=== PATIENT | female | born 1990 | race Caucasian/White ===

== ENCOUNTER → 2021-11-25 | Outpatient (CLI) | payer MEDICAID, SELFPAY ==
[2021-11-25 16:41] LABS: Absolute Lymphocyte Count 1.74 X10^3/uL (0.83-4.51); Absolute Neutrophil Count 6.8 X10^3/uL (2.0-7.7); Basophil# 0.04 X10^3/uL; Basophil% 0.4 % (0-1); Eosinophil# 0.61 X10^3/uL; Eosinophils% 6.1 % (0-5); Hematocrit 34.9 % (37-47); Hemoglobin 12.3 g/dL (12.0-15.0); Lymphocyte # 1.74 X10^3/ul (0.83-4.51); Lymphocyte % 17.3 % (19-41); Mean Corp Hgb Conc 35.2 g/dL (32-36); Mean Corpuscular Hgb 30.3 pg (27.0-32.0); Mean Platelet Vol. 9.8 fl (6.2-12.0); Monocyte# 0.82 X10^3/uL; Monocyte% 8.2 % (0-10); NRBC Flagged by Analyzer 0 % (0-5); Neutrophil # 6.78 X10^3/uL (2.7-7.7); Neutrophil % 67.5 % (47-70); Platelet Count 257 K/mm3 (150-450); RBC Distribution Width SD 43.5 fl (35.1-43.9); Red Blood Count 4.06 M/mm3 (4.2-5.4)
[2021-11-25 17:01] LABS: Thyroid Stim Hormone (TSH) 1.46 uIU/mL (0.358-3.74)
[2021-11-26 10:23] LABS: HIV - WCH Non-Reactive (Nonreactive); Hepatitis B Surface Antigen Non-Reactive (Nonreactive); Hepatitis C Antibody Non-Reactive (Nonreactive); Rubella IgG Reactive (Nonreactive); Syphilis Antibodies Non-reactive
[2021-11-27 14:34] LABS: V-Zoster IgG (Immunity) 937 index (Immune >165)
== END | disposition home or self-care (01) ==
PROVIDERS: Visit Provider Student in an Organized Health Care Education/Training Program
DX: Z34.81 Encounter for supervision of other normal pregnancy, first trimester (principal); E03.9 Hypothyroidism, unspecified
CPT/HCPCS: G0145; 36415; 84443; 85025; 86703; 86762; 86780; 86787; 86803; 87077; 87086; 87088; 87340; 88175

== ENCOUNTER 2021-12-08 09:30 | Emergency (ER) | payer MEDICAID, SELFPAY ==
[2021-12-08 09:32] VITALS: BP 128/84; PULSE 64; RESP 18; TEMP 35.6; O2SAT 100; BMI 41.4
--- NOTE | 2021-12-08 10:07 | EDS_ITS ---
HPI History of Present Illness Chief Complaint: Lower Extremity Injury Informant: patient Onset/Context/Timing Onset: Weeks (2) Context: Gradual Onset Timing: Continuous Quality of Pain: - (sore) Location: LLE Current Severity: Moderate Maximum Severity: Moderate Worsened by: palpation Relieved by: leaving alone Associated Symptoms Associated Symptoms: Negative for Parasthesia, Weakness or Loss of Funtion Narrative Narrative: Patient is , for the past 2 weeks she has gradually developed painful redness in her left medial knee and proximal calf as well as dependent edema in her ankle on the left. No chest pain or shortness of breath. She discussed with her OB and they sent her to the emergency department for evaluation. No history of DVT or PE. No recent long travel or immobilization/hospitalization or surgery. PFSH PFSH Medical History no medical history no medical history Allergy/AdvReac Type Severity Reaction Status Date / Time Penicillins AdvReac Hives Verified 12/08/21 09:35 Sulfa (Sulfonamide AdvReac Hives Verified 12/08/21 09:35 Antibiotics) Social History Smoking Status: Unknown if ever smoked ROS ROS ED Constitutional Constitutional ED: Denies chills or fever(s) Cardiovascular Cardiovascular: Reports leg edema; Denies chest pain, palpitations, racing heartbeat or syncope Respiratory/Chest Respiratory/Chest: Denies dyspnea or dyspnea on exertion Musculoskeletal Musculoskeletal: Reports extremity pain; Denies neck pain Integumentary Denies Abrasions, rash or wounds Neurologic Neurologic: Denies paresthesias or weakness EXAM Physical Exam Const Vital Signs: 12/08/21 09:32 Temperature 96.0 F L Temperature Source Temporal Pulse Rate 64 Respiratory Rate 18 Blood Pressure 128/84 H Blood Pressure Mean 98 Pulse Ox 100 Oxygen Delivery Method Room Air Positive well nourished, well developed and obese General Appearance ED: well developed and NAD Nutritional Appearance: obese Neck full ROM and supple Resp normal respiratory effort and no retractions Cardio regular rate and regular rhythm Rate: Negative for tachycardic Back/Spine normal ROM and normal to inspection Extremity full ROM Extremity Narrative: Mild erythema and tenderness at the medial aspect of the left knee and proximal calf. superficial palpable cords and several nearby veins. Mild distal edema in the left lower extremity asymmetric. Neuro oriented x3, no focal motor deficits, no sensory deficits noted and gait normal Sensorium / Orientation: alert Psych mental status grossly normal and thought process normal Skin no wounds Rashes: no rashes MDM MDM MDM Narrative Medical decision making narrative: Duplex venous ultrasound of the left lower extremity was obtained here in the em ergency department, preliminary evaluation from the copier field service technician is that there is superficial venous thrombosis without any DVT. Discussed with Dr. Swift, who is in agreement with aspirin 81 mg daily and warm compresses and close outpatient follow-up without the need for any anticoagulation. Discussed with the patient she was given aspirin here and discharged with appropriate discharge instructions. Discharge Plan Triage Chief Complaint: Lower Extremity Injury ED Provider: Tristen Urbina Dx/Rx/DC Orders Clinical Impression: Acute superficial venous thrombosis of left lower extremity, Instructions: Venous Thromboembolism Primary Care Provider: Care Physician,No Primary Referrals: Chichi Swift DO [Med Staff - Active Staff] - 1 Week Care Physician,No Primary [Primary Care Provider] - Activity Restrictions/Additional Instructions: Do warm compresses as advised in the instructions of follow, and take aspirin 81 mg (baby) once daily. Disposition Disposition: Home, Self Care
--- NOTE | 2021-12-08 10:07 | VDLE_ITS ---
Reason For Study: Swelling RIGHT LEFT CFV is compressible, spontaneous, phasic, GSV is normal. competent and demonstrates normal CFV is compressible, spontaneous, phasic, augmentation. competent, and demonstrates normal Procedure augmentation. This is a venous duplex using B-mode, color FV is compressible, spontaneous, phasic, flow and spectral Doppler. competent and demonstrates normal Exam performed in department. augmentation. A preliminary report was called and/or faxed POP V is compressible, spontaneous, phasic, to Dr. Urbina. competent and demonstrates normal augmentation. T/P Trunk is compressible. PTV is compressible. LT PerV is compressible. Thrombus filled varicose veins noted at the knee. VL/Venous Duplex US, Unilateral Interpretation Summary Deep veins of the left lower extremity are patent and compressible segmentally. There is no evidence of left lower extremity deep vein thrombosis. Acute superficial vein thrombus noted in varicosities adjacent to the left knee Ordering Physician: Tristen Urbina Performed By: Araceli Morgan RVT
[2021-12-08] MEDS: Aspirin 81 MG TAB.CHEW PO (11:18)
== END 2021-12-08 11:19 | disposition home or self-care (01) ==
PROVIDERS: Emergency Provider Emergency Medicine; Visit Provider Emergency Medicine
DX: O22.30 Deep phlebothrombosis in pregnancy, unspecified trimester (principal); O99.210 Obesity complicating pregnancy, unspecified trimester; I82.812 Embolism and thrombosis of superficial veins of left lower extremity; Z3A.00 Weeks of gestation of pregnancy not specified
CPT/HCPCS: 93971; 99283

== ENCOUNTER → 2021-12-23 | Outpatient (CLI) | payer MEDICAID, SELFPAY ==
[2021-12-23 12:18] LABS: Absolute Lymphocyte Count 1.64 X10^3/uL (0.83-4.51); Absolute Neutrophil Count 6.2 X10^3/uL (2.0-7.7); Basophil# 0.04 X10^3/uL; Basophil% 0.4 % (0-1); Eosinophil# 0.39 X10^3/uL; Eosinophils% 4.3 % (0-5); Hematocrit 34.1 % (37-47); Hemoglobin 11.2 g/dL (12.0-15.0); Lymphocyte # 1.64 X10^3/ul (0.83-4.51); Lymphocyte % 18.1 % (19-41); Mean Corp Hgb Conc 32.8 g/dL (32-36); Mean Corpuscular Hgb 29.8 pg (27.0-32.0); Mean Corpuscular Volume 90.7 fL (81-99); Mean Platelet Vol. 9.5 fl (6.2-12.0); Monocyte# 0.63 X10^3/uL; NRBC Flagged by Analyzer 0 % (0-5); Neutrophil # 6.21 X10^3/uL (2.7-7.7); Neutrophil % 68.8 % (47-70); Platelet Count 248 K/mm3 (150-450); RBC Distribution Width CV 13.7 % (11.6-14.6); Red Blood Count 3.76 M/mm3 (4.2-5.4)
[2021-12-23 12:21] LABS: Glucose Challenge Gest 1H 50g 155 mg/dL (70-140)
[2022-01-01 00:07] LABS: HPV Genotype 16, Aptima Negative (Negative)
[2022-01-01 09:01] LABS: HPV APTIMA, High Risk Positive (Negative); HPV Genotype 18,45 Aptima Negative (Negative)
== END | disposition home or self-care (01) ==
LOC: WOBLAB 11:03
PROVIDERS: Visit Provider Student in an Organized Health Care Education/Training Program
DX: Z34.82 Encounter for supervision of other normal pregnancy, second trimester (principal)
CPT/HCPCS: 36415; 82950; 85025; 87624; 88175; G0145

== ENCOUNTER → 2021-12-30 | Outpatient (CLI) | payer MEDICAID, SELFPAY ==
[2021-12-30 10:01] LABS: Glucose GTT-Gestation. Fasting 73 mg/dL (<105)
[2021-12-30 10:49] LABS: Glucose GTT-Gestational 1 Hr 140 mg/dL (<190)
[2021-12-30 12:26] LABS: Glucose GTT-Gestational 3 Hr 61 L (<145)
[2021-12-30 12:27] LABS: Glucose GTT-Gestational 2 Hr 87 mg/dL (<165)
== END | disposition home or self-care (01) ==
LOC: WOBLAB 08:40
PROVIDERS: Visit Provider Student in an Organized Health Care Education/Training Program
DX: O24.912 Unspecified diabetes mellitus in pregnancy, second trimester (principal); Z3A.00 Weeks of gestation of pregnancy not specified
CPT/HCPCS: 36415; 82951; 82952

== ENCOUNTER 2022-02-02 09:17 | Outpatient (CLI) | payer MEDICAID, SELFPAY ==
[2022-02-02 09:18] VITALS: BP 120/73; PULSE 108; RESP 14; TEMP 36.3; O2SAT 97; BMI 44.5
--- NOTE | 2022-02-02 09:32 | ED.RN ---
Pt taken down to OB per OB doctor request.
[2022-02-02 10:00] VITALS: O2SAT 80
[2022-02-02 10:01] VITALS: BP 128/56; PULSE 71
[2022-02-02 10:16] VITALS: BMI 43.6
[2022-02-02] MEDS: Acetaminophen 500 MG Tablet 1000 MG PO (10:55)
[2022-02-02 11:41] LABS: Mucous, Urine 0 SEEN /hpf (<or=2+); Red Blood Cells-Urine 0 SEEN /hpf (0-5); Squamous Epithelial Cells - UA 0 SEEN /hpf (5-10)
[2022-02-02 11:42] LABS: Color, Urine Yellow (Yellow); Glucose, Dipstick Normal (Normal); Ketone-Dipstick 5 mg/dl (Negative); Leukocyte Esterase-Dipstick 500 /ul (Negative); Nitrite-Dipstick Positive (Negative); Occult Blood-Urine 10 /ul (Negative); Protein-Dipstick 15 mg/dl (Negative); Specific Gravity, Urine 1.015 (1.002-1.030); Urine Bilirubin Dipstick Negative (Negative); Urine Clarity Clear (Clear); Urine Urobilinogen Normal (Normal)
[2022-02-02 11:53] LABS: White Blood Cells 25-50 SEEN /hpf (0-5)
[2022-02-02 11:54] LABS: Bacteria 3+ /hpf (None Seen)
--- NOTE | 2022-02-02 12:56 | PN.OBGYN_ITS ---
Subjective Subjective 31-year-old at 25 and 3 weeks presenting with back pain and lower pelvic discomfort. Denies dysuria, fevers or chills, nausea or vomiting, diarrhea or constipation. Reports movement. Denies cramping, leaking of fluid, vaginal bleeding. Objective Data Objective Data Vital Signs: Vital Signs Temp Pulse Resp BP Pulse Ox O2 Del Method 97.3 F L 71 14 128/56 H 80 Room Air 02/02/22 09:18 02/02/22 10:01 02/02/22 09:18 02/02/22 10:01 02/02/22 10:00 02/02/22 09:18 Oxygen Delivery Method Room Air Weight: 118.841 kg Body Mass Index (BMI) 43.6 Lab / Micro Data Attestation: I reviewed the patient's lab results. Labs: Laboratory Results - last 24 hr 02/02/22 11:30: Urine Color Yellow, Urine Clarity Clear, Urine pH 7.0, Ur Specific [place] 1.015, Urine Protein 15 H, Urine Glucose (UA) Normal, Urine Ketones 5 H, Urine Occult Blood 10 H, Urine Nitrite Positive H, Urine Bilirubin Negative, Urine Urobilinogen Normal, Ur Leukocyte Esterase 500 H, Urine RBC 0 SEEN, Urine WBC 25-50 SEEN, Ur Squamous Epith Cells 0 SEEN, Urine Bacteria 3+, Urine Mucus 0 SEEN Physical Exam Const alert, oriented x3 and no apparent distress General Appearance: cooperative and comfortable HEENT normocephalic Head and Scalp: atraumatic Eyes PERRL Resp normal respiratory effort GI soft to palpation, non-tender and non-distended Inspection: gravid Narrative: Cervix closed, thick and high Back/Spine no CVA tenderness Extremity normal to inspection and no pedal edema Neuro moves all extremities, no focal motor deficits and no sensory deficits noted NST FHR Rate Baby A Baseline: 145 Variability:: Moderate Accelerations:: 15 x 15 Decelerations:: None NST Reactive:: Yes Assessment & Plan (1) Urinary tract infection: PLAN: G2, P0 at 25/3 weeks presenting with urinary tract infection. No evidence of labor. No CVA tenderness, no evidence for pyelonephritis. Will treat with Macrobid. Urine culture is pending. Tylenol did improve pain as well. Prescription for Tylenol, Macrobid, Zofran sent to [facility] retail pharmacy. Patient is to see social work while she is here. She is currently living at [facility]. Patient has been walking to appointments. Will look into coverage of insurance for rides and also belly band. status reassuring. Discharge home with precautions. Patient call or return with fevers or chills. Follow-up as routine in office.
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
== END 2022-02-02 16:30 | disposition home or self-care (01) ==
LOC: ED 09:44 → WP 09:45
PROVIDERS: Visit Provider Student in an Organized Health Care Education/Training Program
DX: O23.42 Unspecified infection of urinary tract in pregnancy, second trimester (principal); Z3A.25 25 weeks gestation of pregnancy; Z79.82 Long term (current) use of aspirin; Z79.899 Other long term (current) drug therapy
CPT/HCPCS: 59025; 59050; 81001; 87077; 87086; 87088; 87186; 99218; G0378

== ENCOUNTER 2022-02-09 08:12 | Emergency (ER) | payer MEDICAID, SELFPAY ==
[2022-02-09 08:13] VITALS: BP 132/58; PULSE 70; RESP 14; TEMP 36.6; O2SAT 100; BMI 43.2
--- NOTE | 2022-02-09 08:26 | ED.VIS.FEGU ---
HPI HPI - Female History of Present Illness Chief Complaint: Complaint Narrative Narrative: Patient tells me she is about 26 weeks . She has 2 complaints she has right upper incisor tenderness and facial tenderness. She also has dysuria. She was recently treated for UTI but does not know if she was on the right antibiotic, apparently was not cultured. She has no fevers or chills she has no flank pain no hematuria. She has heart movement. PFSH PFSH Home Medications PNV 153-FA 400 mcg-om3 35 mg-dha 25 mg-epa 5 mg-fish oil chew tablet ( Gummies) tab PO 02/02/22 [History Last Taken 02/01/22 21:00] acetaminophen 325 mg tablet (Tylenol) 650 mg PO Q6H PRN fever or pain #60 tabs 02/02/22 [Rx Last Taken Unknown] aspirin 81 mg chewable tablet 81 mg PO DAILY blood clots 02/02/22 [History Last Taken 02/01/22 21:00] ferrous gluconate 325 mg (36 mg iron) tablet 325 mg PO DAILY anemia 02/02/22 [History Last Taken 02/01/22 21:00] nitrofurantoin monohydrate/macrocrystals 100 mg capsule (Macrobid) 100 mg PO BID 7 days #14 caps 02/02/22 [Rx Last Taken Unknown] omeprazole 20 mg capsule,delayed release 20 mg PO DAILY 02/02/22 [History Last Taken 02/01/22 21:00] ondansetron 4 mg disintegrating tablet 4 mg PO Q8H PRN nausea and vomiting 30 days #30 tabs 02/02/22 [Rx Last Taken Unknown] cephalexin 500 mg capsule 500 mg PO Q6 #40 caps 02/09/22 [Rx Last Taken Unknown] Allergy/AdvReac Type Severity Reaction Status Date / Time Penicillins AdvReac Hives Verified 02/09/22 08:13 Sulfa (Sulfonamide AdvReac Hives Verified 02/09/22 08:13 Antibiotics) Social History Smoking Status: Current every day smoker tobacco type: cigarettes ROS ROS ED ROS Narrative Past medical history: Prior superficial thrombophlebitis Medications: Reviewed Social history: Continues to smoke throughout her Review of systems: All systems negative except as indicated General: No fever Eyes: No visual changes ENT: No upper airway congestion, normal voice. Dental pain as in HPI Neck: No neck pain Cardiovascular: No chest pain Respiratory: No shortness of breath or cough Gastrointestinal: No abdominal pain, nausea vomiting or diarrhea. Has heart movement Genitourinary: As in HPI Musculoskeletal: Denies myalgias no difficulty with ambulation Skin: No rash Neurological: No memory loss, confusion or any focal weakness Psych: No recent behavioral changes Hematologic: No easy bleeding or easy bruising EXAM Physical Exam Narrative Exam Narrative: Physical exam General: She appears relatively comfortable in the bed. Her vitals are normal. Head: Normocephalic, Atraumatic Eyes: Conjunctiva not pale ENT: Moist mucous membranes. She has a missing right upper incisor, that is where her tenderness is, she has no edema swelling or erythema or any signs of infection. She has a normal voice and a normal soft palate. Neck: Supple, Nontender, No lymphadenopathy Cardiovascular: Regular rate, Regular rhythm Respiratory: No distress, CTA bilaterally Abdomen: Soft, gravid. No significant tenderness. : Deferred. Back: Nontender, Normal Inspection. Negative for: CVA tenderness Extremities: Nontender, No edema Skin: Normal color, No rash Neurological: Alert, Normal Strength, Normal Sensation Psychological: Normal affect Const Vital Signs: 02/09/22 08:13 Temperature 98 F Temperature Source Temporal Pulse Rate 70 Respiratory Rate 14 Blood Pressure 132/58 H Blood Pressure Mean 82 Pulse Ox 100 Oxygen Delivery Method Room Air MDM MDM MDM Narrative Medical decision making narrative: Patient still has a slight UTI, I will culture it. I will place the patient on Keflex, she was initially on nitrofurantoin. The Keflex should get any kind of infection in the dental region. She can follow-up with her OB Lab Data Labs: Laboratory Results - last 24 hr 02/09/22 08:43 Urine Color Yellow Urine Clarity Sl. Cloudy Urine pH 7.0 Ur Specific [place] 1.010 Urine Protein Negative Urine Glucose (UA) Normal Urine Ketones Negative Urine Occult Blood 10 H Urine Nitrite Positive H Urine Bilirubin Negative Urine Urobilinogen Normal Ur Leukocyte Esterase 25 H Urine RBC 0-5 SEEN Urine WBC 0-5 SEEN Ur Squamous Epith Cells 5-10 SEEN Urine Bacteria 3+ Urine Mucus 0 SEEN Discharge Plan Triage Chief Complaint: Complaint ED Provider: Parvez Busby Dx/Rx/DC Orders Clinical Impression: Urinary tract infection, Pain, dental Instructions: ED Dental Pain, ED Cystitis Female Adult Prescriptions: New cephalexin 500 mg capsule 500 mg PO Q6 Qty: 40 0RF No Action omeprazole 20 mg Capsule,Delayed Release(Dr/Ec) 20 mg PO DAILY aspirin 81 mg Tablet,Chewable 81 mg PO DAILY ferrous gluconate 325 mg (36 mg iron) Tablet 325 mg PO DAILY Gummies 400 mcg-35 mg- 25 mg-5 mg Tablet,Chewable PO nitrofurantoin monohyd/m-cryst [Macrobid] 100 mg capsule 100 mg PO BID 7 Days Qty: 14 0RF Rx Instructions: must administer with a meal/food acetaminophen [Tylenol] 325 mg tablet 650 mg PO Q6H PRN (Reason: fever or pain) Qty: 60 0RF ondansetron 4 mg tablet,disintegrating 4 mg PO Q8H PRN (Reason: nausea and vomiting) 30 Days Qty: 30 1RF Primary Care Provider: Care Physician,No Primary Referrals: Care Physician,No Primary [Primary Care Provider] - 3-5 Days Disposition Disposition: Home, Self Care
[2022-02-09 08:49] LABS: Mucous, Urine 0 SEEN /hpf (<or=2+)
[2022-02-09 08:54] LABS: Color, Urine Yellow (Yellow); Glucose, Dipstick Normal (Normal); Ketone-Dipstick Negative (Negative); Leukocyte Esterase-Dipstick 25 /ul (Negative); Nitrite-Dipstick Positive (Negative); Occult Blood-Urine 10 /ul (Negative); Protein-Dipstick Negative (Negative); Urine Bilirubin Dipstick Negative (Negative); Urine Clarity Sl. Cloudy (Clear); Urine Urobilinogen Normal (Normal)
[2022-02-09 09:03] LABS: Bacteria 3+ /hpf (None Seen); Red Blood Cells-Urine 0-5 SEEN /hpf (0-5); Squamous Epithelial Cells - UA 5-10 SEEN /hpf (5-10); White Blood Cells 0-5 SEEN /hpf (0-5)
== END 2022-02-09 09:41 | disposition home or self-care (01) ==
PROVIDERS: Emergency Provider Emergency Medicine; Visit Provider Emergency Medicine
DX: O23.42 Unspecified infection of urinary tract in pregnancy, second trimester (principal); O99.612 Diseases of the digestive system complicating pregnancy, second trimester; O99.332 Smoking (tobacco) complicating pregnancy, second trimester; K08.89 Other specified disorders of teeth and supporting structures; F17.210 Nicotine dependence, cigarettes, uncomplicated; Z3A.26 26 weeks gestation of pregnancy
CPT/HCPCS: 99281; 81001; 87077; 87086; 87088; 87186; 99282

== ENCOUNTER → 2022-02-12 | Outpatient (CLI) | payer MEDICAID, SELFPAY ==
[2022-02-12 11:42] LABS: Absolute Lymphocyte Count 1.48 X10^3/uL (0.83-4.51); Absolute Neutrophil Count 8.1 X10^3/uL (2.0-7.7); Basophil# 0.03 X10^3/uL; Basophil% 0.3 % (0-1); Eosinophil# 0.08 X10^3/uL; Eosinophils% 0.8 % (0-5); Hematocrit 37.4 % (37-47); Hemoglobin 12.9 g/dL (12.0-15.0); Lymphocyte # 1.48 X10^3/ul (0.83-4.51); Lymphocyte % 14.1 % (19-41); Mean Corp Hgb Conc 34.5 g/dL (32-36); Mean Corpuscular Hgb 30.8 pg (27.0-32.0); Mean Corpuscular Volume 89.3 fL (81-99); Mean Platelet Vol. 8.9 fl (6.2-12.0); Monocyte% 6.7 % (0-10); NRBC Flagged by Analyzer 0 % (0-5); Neutrophil # 8.12 X10^3/uL (2.7-7.7); Neutrophil % 77.2 % (47-70); Platelet Count 272 K/mm3 (150-450); RBC Distribution Width CV 13.8 % (11.6-14.6); RBC Distribution Width SD 45.1 fl (35.1-43.9); Red Blood Count 4.19 M/mm3 (4.2-5.4); White Blood Count 10.5 K/mm3 (4.4-11.0)
[2022-02-12 12:18] LABS: Glucose Challenge Gest 1H 50g 122 mg/dL (70-140)
== END | disposition home or self-care (01) ==
LOC: WOBLAB 11:33
PROVIDERS: Visit Provider Student in an Organized Health Care Education/Training Program
DX: Z34.82 Encounter for supervision of other normal pregnancy, second trimester (principal)
CPT/HCPCS: 36415; 82950; 85025

== ENCOUNTER 2022-02-22 09:49 | Emergency (ER) | payer MEDICAID, SELFPAY ==
[2022-02-22 09:50] VITALS: BP 130/79; PULSE 74; RESP 14; TEMP 36.2; O2SAT 100; BMI 44.6
--- NOTE | 2022-02-22 10:33 | VDLE_ITS ---
Reason For Study: Pain RIGHT LEFT GSV is normal. GSV is normal. CFV is compressible, spontaneous, phasic, CFV is compressible, spontaneous, phasic, competent and demonstrates normal competent, and demonstrates normal augmentation. augmentation. FV is compressible, spontaneous, phasic, FV is compressible, spontaneous, phasic, competent and demonstrates normal competent and demonstrates normal augmentation. augmentation. POP V is compressible, spontaneous, phasic, POP V is compressible, spontaneous, phasic, competent and demonstrates normal competent and demonstrates normal augmentation. augmentation. T/P Trunk is compressible. T/P Trunk is compressible. PTV is compressible. PTV is compressible. RT PerV is compressible. LT PerV is compressible. Procedure This is a venous duplex using B-mode, color flow and spectral Doppler. Exam performed portable in ED. A preliminary report was called and/or faxed to Dr. Nicolas. VL/Venous Duplex US - Bhanu Extrem Interpretation Summary Deep veins of the bilateral lower extremities are patent and compressible segme ntally. There is no evidence of bilateral lower extremity deep vein thrombosis. The bilateral great saphenous veins appear patent and compressible segmentally. Ordering Physician: Altagracia Nicolas Performed By: Kathleen Villafuerte, TONO, RVT
--- NOTE | 2022-02-22 10:50 | EDS_ITS ---
HPI History of Present Illness Chief Complaint: Lower Extremity Injury Informant: patient Narrative Narrative: Patient presents secondary to concern for blood clots in her legs. She was seen in December and found have a superficial clot in her left leg. She is currently 28 weeks . She has been taking baby aspirin daily. She states over the weekend she started noticing some dark discolored rated lesions on her right leg as well. She denies chest pain or shortness of breath. She has no known clotting disorder. [facility] Medical History Superficial thrombophlebitis Home Medications PNV 153-FA 400 mcg-om3 35 mg-dha 25 mg-epa 5 mg-fish oil chew tablet ( Gummies) tab PO 02/02/22 [History Last Taken 02/01/22 21:00] acetaminophen 325 mg tablet (Tylenol) 650 mg PO Q6H PRN fever or pain #60 tabs 02/02/22 [Rx Last Taken Unknown] aspirin 81 mg chewable tablet 81 mg PO DAILY blood clots 02/02/22 [History Last Taken 02/01/22 21:00] ferrous gluconate 325 mg (36 mg iron) tablet 325 mg PO DAILY anemia 02/02/22 [History Last Taken 02/01/22 21:00] nitrofurantoin monohydrate/macrocrystals 100 mg capsule (Macrobid) 100 mg PO BID 7 days #14 caps 02/02/22 [Rx Last Taken Unknown] omeprazole 20 mg capsule,delayed release 20 mg PO DAILY 02/02/22 [History Last Taken 02/01/22 21:00] ondansetron 4 mg disintegrating tablet 4 mg PO Q8H PRN nausea and vomiting 30 days #30 tabs 02/02/22 [Rx Last Taken Unknown] cephalexin 500 mg capsule 500 mg PO Q6 #40 caps 02/09/22 [Rx Last Taken Unknown] Allergy/AdvReac Type Severity Reaction Status Date / Time Penicillins AdvReac Hives Verified 02/22/22 09:50 Sulfa (Sulfonamide AdvReac Hives Verified 02/22/22 09:50 Antibiotics) Social History Smoking Status: Current every day smoker tobacco type: cigarettes ROS ROS ED Constitutional Constitutional ED: Denies chills or fever(s) Eyes Eyes: Denies change in vision or discharge from eye(s) ENT ENT ED: Denies discharge from eye(s), rhinorrhea or sore throat Cardiovascular Cardiovascular: Denies chest pain or palpitations Respiratory/Chest Respiratory/Chest: Denies cough or dyspnea Gastrointestinal Gastrointestinal: Denies abdominal pain, diarrhea, nausea or vomiting Genitourinary Genitourinary ED: Denies difficulty urinating or dysuria Musculoskeletal Musculoskeletal: Reports extremity pain; Denies back pain Integumentary Reports other Details: Dark discoloration to legs. ; Denies Abrasions or rash Neurologic Neurologic: Denies headache(s) or weakness Psychiatric Psychiatric: Denies anxiety or depression Allergic/Immunologic Allergic/Immunologic ED: Denies lip swelling or urticaria EXAM Physical Exam Const Vital Signs: 02/22/22 09:50 Temperature 97.2 F L Temperature Source Temporal Pulse Rate 74 Respiratory Rate 14 Blood Pressure 130/79 H Blood Pressure Mean 96 Pulse Ox 100 Oxygen Delivery Method Room Air Positive well nourished and well developed General Appearance ED: well developed HEENT Reports normocephalic and head/scalp atraumatic Eyes PERRL and EOMs intact bilaterally Neck supple Chest Wall inspection of chest normal and palpation of chest normal Resp normal respiratory effort and clear to auscultation bilaterally Cardio regular rate and regular rhythm GI normal to inspection, nondistended, normoactive bowel sounds Palpation: soft Extremity Extremity Narrative: Couple areas of superficial typhlitis noted in the lower extremities. No overlying erythema or warmth. Mild bilateral lower extremity edema, symmetric. Neuro oriented x3 and no sensory deficits noted Sensorium / Orientation: alert Motor Exam: strength 5/5 throughout Psych mental status grossly normal Skin no rashes or lesions noted MDM MDM MDM Narrative Medical decision making narrative: Bilateral lower extremity venous ultrasound ordered. Treatment and Re-Evaluation Narrative: Venous ultrasound reveals no evidence of DVT or superficial clot. She has to some distended superficial veins but no clot. Test results are discussed with patient and family at bedside. She is already taking baby aspirin daily. We discussed using compressive socks and warm compresses. She is to follow-up with her [employer]BILE [employer]ITY ARCHIT[employer]. Discharge Plan Triage Chief Complaint: Lower Extremity Injury ED Provider: Altagracia Nicolas Dx/Rx/DC Orders Clinical Impression: Varicose vein of leg Instructions: ED Varicose Veins Prescriptions: No Action omeprazole 20 mg Capsule,Delayed Release(Dr/Ec) 20 mg PO DAILY aspirin 81 mg Tablet,Chewable 81 mg PO DAILY ferrous gluconate 325 mg (36 mg iron) Tablet 325 mg PO DAILY Gummies 400 mcg-35 mg- 25 mg-5 mg Tablet,Chewable PO nitrofurantoin monohyd/m-cryst [Macrobid] 100 mg capsule 100 mg PO BID 7 Days Qty: 14 0RF Rx Instructions: must administer with a meal/food acetaminophen [Tylenol] 325 mg tablet 650 mg PO Q6H PRN (Reason: fever or pain) Qty: 60 0RF ondansetron 4 mg tablet,disintegrating 4 mg PO Q8H PRN (Reason: nausea and vomiting) 30 Days Qty: 30 1RF cephalexin 500 mg capsule 500 mg PO Q6 Qty: 40 0RF Primary Care Provider: Care Physician,No Primary Referrals: Care Physician,No Primary [Primary Care Provider] - Activity Restrictions/Additional Instructions: Please use a warm wash rag over the area to act as a warm compress 3 times daily. Continue your daily aspirin. Use compressive stockings as discussed. Disposition Disposition: Home, Self Care
[2022-02-22 11:49] VITALS: BP 138/78; PULSE 78; RESP 16; O2SAT 98
[2022-02-22 12:31] VITALS: BP 132/88; PULSE 91; RESP 16; TEMP 36.6; O2SAT 99
== END 2022-02-22 12:43 | disposition home or self-care (01) ==
PROVIDERS: Emergency Provider Emergency Medicine; Visit Provider Emergency Medicine
DX: O22.03 Varicose veins of lower extremity in pregnancy, third trimester (principal); O99.333 Smoking (tobacco) complicating pregnancy, third trimester; F17.210 Nicotine dependence, cigarettes, uncomplicated; Z3A.28 28 weeks gestation of pregnancy; Z79.82 Long term (current) use of aspirin
CPT/HCPCS: 93970; 99282

== ENCOUNTER → 2022-03-01 | Outpatient (CLI) | payer MEDICAID, SELFPAY | END | disposition home or self-care (01) | LOC: WOBLAB 09:47 | PROVIDERS: Visit Provider Student in an Organized Health Care Education/Training Program | DX: Z67.11 Type A blood, Rh negative (principal) | CPT/HCPCS: 36415; 86850 ==

== ENCOUNTER 2022-03-09 19:11 | Emergency (ER) | payer MEDICAID, SELFPAY ==
[2022-03-09 19:12] VITALS: BP 133/65; PULSE 102; RESP 15; TEMP 37; O2SAT 96; BMI 39.6
[2022-03-09 21:35] LABS: Absolute Lymphocyte Count 0.76 X10^3/uL (0.83-4.51); Absolute Neutrophil Count 8.2 X10^3/uL (2.0-7.7); Basophil# 0.05 X10^3/uL; Basophil% 0.5 % (0-1); Eosinophil# 0.04 X10^3/uL; Eosinophils% 0.4 % (0-5); Hematocrit 38.4 % (37-47); Hemoglobin 12.9 g/dL (12.0-15.0); Lymphocyte # 0.76 X10^3/ul (0.83-4.51); Lymphocyte % 7.6 % (19-41); Mean Corp Hgb Conc 33.6 g/dL (32-36); Mean Corpuscular Hgb 30.2 pg (27.0-32.0); Mean Corpuscular Volume 89.9 fL (81-99); Mean Platelet Vol. 9.1 fl (6.2-12.0); Monocyte# 0.76 X10^3/uL; Monocyte% 7.6 % (0-10); NRBC Flagged by Analyzer 0 % (0-5); Neutrophil % 82.1 % (47-70); Platelet Count 268 K/mm3 (150-450); RBC Distribution Width CV 13.6 % (11.6-14.6); RBC Distribution Width SD 44.5 fl (35.1-43.9); Red Blood Count 4.27 M/mm3 (4.2-5.4)
[2022-03-09 21:48] LABS: Anion Gap 7 (5-15); BUN 8 mg/dL (7-18); BUN/Creat Ratio 12.8 RATIO (10-20); Calcium,Total 9.2 mg/dL (8.5-10.1); Chloride 106 mmol/L (98-107); Creatinine, Serum 0.63 mg/dL (0.55-1.02); EST Glomerular Filtration Rate 118 mL/min (>60); Est Glom Filt Rate - Afr Amer 143 mL/min (>60); Estimated Creatinine Clearance 122.23 ml/min; Glucose 88 mg/dL (74-106); Potassium 3.8 mmol/L (3.5-5.1); Sodium Level 136 mmol/L (136-145)
[2022-03-09 22:30] VITALS: BP 136/80; PULSE 77; RESP 15; O2SAT 98
[2022-03-09 22:37] LABS: AST(SGOT) 30 U/L (15-37); Alanine Aminotransfer ALT/SGPT 29 U/L (13-56); Albumin, Serum 2.8 g/dL (3.2-5.0); Alkaline Phosphatase 104 U/L (45-117); Bilirubin, Direct 0.14 mg/dL (0.00-0.30); Globulin 4.1 g/dL (2.2-4.2); Protein, Total 6.9 g/dL (6.4-8.2)
[2022-03-09] MEDS: Ondansetron 4 MG/2 ML Vial IV (22:45)
[2022-03-09] MEDS: 0.9% Normal Saline 1,000 ML 1000 ML IV (22:45)
--- NOTE | 2022-03-09 23:48 | EDS_ITS ---
HPI HPI - GI History of Present Illness Chief Complaint: Abd Pain Nausea/Vomiting/Emesis GI Symptom: Positive for Nausea and Vomiting Onset: Today Quality: Positive for Nonbilious; Negative for Blood streaks, Coffee ground or Hematemesis Severity: Moderate Diarrhea/Melena/Hematochezia GI Symptom: Negative for Diarrhea, Melena or Hematochezia Associated Symptoms Associated Symptoms: Negative for Dysuria, Frequency or Hematuria Narrative Narrative: Patient presents with nausea and vomiting that began today. Patient states she feels like she ate some bad food. Patient states that her nausea and vomiting started shortly after eating the food. Patient states it tasted funny. Patient denies any hematemesis or coffee-ground emesis. Patient denies any diarrhea, melena, or hematochezia. Patient is approximately 30 weeks and is concerned about dehydration. Patient denies any fevers or chills. Patient denies any abdominal pain. Patient denies any vaginal bleeding or discharge. [facility] Medical History (Updated 03/10/22 @ 00:[address] Jesus Delatorre, ) History of ectopic Superficial thrombophlebitis Home Medications PNV 153-FA 400 mcg-om3 35 mg-dha 25 mg-epa 5 mg-fish oil chew tablet ( Gummies) tab PO 02/02/22 [History Last Taken 02/01/22 21:00] acetaminophen 325 mg tablet (Tylenol) 650 mg PO Q6H PRN fever or pain #60 tabs 02/02/22 [Rx Last Taken Unknown] aspirin 81 mg chewable tablet 81 mg PO DAILY blood clots 02/02/22 [History Last Taken 02/01/22 21:00] ferrous gluconate 325 mg (36 mg iron) tablet 325 mg PO DAILY anemia 02/02/22 [History Last Taken 02/01/22 21:00] omeprazole 20 mg capsule,delayed release 20 mg PO DAILY 02/02/22 [History Last Taken 02/01/22 21:00] ondansetron 4 mg disintegrating tablet 4 mg PO Q8H PRN nausea and vomiting 30 days #30 tabs 02/02/22 [Rx Last Taken Unknown] cephalexin 500 mg capsule 500 mg PO Q6 #40 caps 02/09/22 [Rx Last Taken Unknown] nitrofurantoin monohydrate/macrocrystals 100 mg capsule (Macrobid) 100 mg PO BID 7 days #14 caps 03/10/22 [Rx Last Taken Unknown] Allergy/AdvReac Type Severity Reaction Status Date / Time Penicillins AdvReac Hives Verified 03/09/22 19:17 Sulfa (Sulfonamide AdvReac Hives Verified 03/09/22 19:17 Antibiotics) Surgical History (Updated 03/09/22 @ 23:[address] Jesus Delatorre DO) Hx of lithotripsy S/P ureteral stent placement Social History Smoking Status: Current every day smoker tobacco type: cigarettes ROS ROS ED Constitutional Constitutional ED: Denies chills or fever(s) Eyes Eyes: Denies blurry vision or change in vision ENT ENT ED: Denies rhinorrhea or sore throat Cardiovascular Cardiovascular: Reports chest pain; Denies palpitations Respiratory/Chest Respiratory/Chest: Reports cough; Denies dyspnea Gastrointestinal Gastrointestinal: Reports nausea and vomiting; Denies abdominal pain or diarrhea Genitourinary Genitourinary ED: Denies dysuria or hematuria Musculoskeletal Musculoskeletal: Reports back pain; Denies neck pain Integumentary Denies abscess or rash Neurologic Neurologic: Reports headache(s); Denies weakness Allergic/Immunologic Allergic/Immunologic ED: Denies mouth swelling or urticaria EXAM Physical Exam Const Vital Signs: 03/09/22 19:12 03/09/22 22:30 03/10/22 00:21 Temperature 98.6 F Temperature Source Temporal Pulse Rate 102 H 77 58 L Respiratory Rate 15 15 16 Blood Pressure 133/65 H 136/80 H 116/63 Blood Pressure Mean 87 98 80 Pulse Ox 96 98 100 Oxygen Delivery Method Room Air Room Air Room Air Positive well nourished and well developed General Appearance ED: well developed HEENT Reports moist mucous membranes Neck supple and no JVD Resp normal respiratory effort and clear to auscultation bilaterally Cardio regular rate, regular rhythm and no murmurs GI normal to inspection, nondistended, normoactive bowel sounds and non-tender Palpation: soft Extremity normal to inspection General Extremety ED: Negative for edema or tenderness General Extremity: Negative for edema Neuro oriented x3, CN's II-XII intact bilaterally, moves all extremities and no sensory deficits noted Sensorium / Orientation: alert Motor Exam: strength 5/5 throughout Psych mental status grossly normal Skin no rashes or lesions noted MDM MDM MDM Narrative Medical decision making narrative: Patient was given IV fluids here. Patient was given a dose of Zofran. CBC was within normal limits. Basic metabolic profile was within normal limits. Hepatic profile was obtained and was within normal limits. Urinalysis was ordered and shows a leukocyte esterases of 100 with positive nitrites. Urine ketones were 150. Urine culture was ordered. Lab Data Attestation: I reviewed the patient's lab results. Labs: Laboratory Results - last 24 hr 03/09/22 03/09/22 03/09/22 21:24 21:24 21:24 WBC 10.0 RBC 4.27 Hgb 12.9 Hct 38.4 MCV 89.9 MCH 30.2 MCHC 33.6 RDW Std Deviation 44.5 H RDW Coeff of Dayo 13.6 Plt Count 268 MPV 9.1 Immature Gran % (Auto) 1.800 H Neut % (Auto) 82.1 H Lymph % (Auto) 7.6 L [place] % (Auto) 7.6 Eos % (Auto) 0.4 Baso % (Auto) 0.5 Absolute Neuts (auto) 8.2 H Absolute Lymphs (auto) 0.76 L Nucleated RBC % 0 Sodium 136 Potassium 3.8 Chloride 106 Carbon Dioxide 23.0 Anion Gap 7 BUN 8 Creatinine 0.63 Estim Creat Clear Calc 122.23 Est GFR (MDRD) Af Amer 143 Est GFR (MDRD) Non-Af 118 BUN/Creatinine Ratio 12.8 Glucose 88 Calcium 9.2 Total Bilirubin 0.70 Direct Bilirubin 0.14 AST 30 ALT 29 Alkaline Phosphatase 104 Total Protein 6.9 Albumin 2.8 L Globulin 4.1 Urine Color Urine Clarity Urine pH Ur Specific [place] Urine Protein Urine Glucose (UA) Urine Ketones Urine Occult Blood Urine Nitrite Urine Bilirubin Urine Urobilinogen Ur Leukocyte Esterase 03/10/22 00:17 WBC RBC Hgb Hct MCV MCH MCHC RDW Std Deviation RDW Coeff of Dayo Plt Count MPV Immature Gran % (Auto) Neut % (Auto) Lymph % (Auto) [place] % (Auto) Eos % (Auto) Baso % (Auto) Absolute Neuts (auto) Absolute Lymphs (auto) Nucleated RBC % Sodium Potassium Chloride Carbon Dioxide Anion Gap BUN Creatinine Estim Creat Clear Calc Est GFR (MDRD) Af Amer Est GFR (MDRD) Non-Af BUN/Creatinine Ratio Glucose Calcium Total Bilirubin Direct Bilirubin AST ALT Alkaline Phosphatase Total Protein Albumin Globulin Urine Color Yellow Urine Clarity Clear Urine pH 6.0 Ur Specific [place] 1.020 Urine Protein 30 H Urine Glucose (UA) Normal Urine Ketones 150 A* Urine Occult Blood 10 H Urine Nitrite Positive H Urine Bilirubin Negative Urine Urobilinogen 4 H Ur Leukocyte Esterase 100 H Discharge Plan Triage Chief Complaint: Abd Pain ED Provider: Jesus Delatorre Dx/Rx/DC Orders Clinical Impression: Urinary tract infection, Nausea and vomiting, Prescriptions: Continued nitrofurantoin monohyd/m-cryst [Macrobid] 100 mg capsule 100 mg PO BID 7 Days Qty: 14 0RF Rx Instructions: must administer with a meal/food No Action omeprazole 20 mg Capsule,Delayed Release(Dr/Ec) 20 mg PO DAILY aspirin 81 mg Tablet,Chewable 81 mg PO DAILY ferrous gluconate 325 mg (36 mg iron) Tablet 325 mg PO DAILY Gummies 400 mcg-35 mg- 25 mg-5 mg Tablet,Chewable PO acetaminophen [Tylenol] 325 mg tablet 650 mg PO Q6H PRN (Reason: fever or pain) Qty: 60 0RF ondansetron 4 mg tablet,disintegrating 4 mg PO Q8H PRN (Reason: nausea and vomiting) 30 Days Qty: 30 1RF cephalexin 500 mg capsule 500 mg PO Q6 Qty: 40 0RF Stand Alone Forms: ED Work / School Excuse Primary Care Provider: Care Physician,No Primary Referrals: Chichi Swift DO [Med Staff - Active Staff] - 3-5 Days Care Physician,No Primary [Primary Care Provider] - Disposition Disposition: Home, Self Care
[2022-03-10 00:21] VITALS: BP 116/63; PULSE 58; RESP 16; O2SAT 100
[2022-03-10 00:22] LABS: Color, Urine Yellow (Yellow); Glucose, Dipstick Normal (Normal); Leukocyte Esterase-Dipstick 100 /ul (Negative); Nitrite-Dipstick Positive (Negative); Occult Blood-Urine 10 /ul (Negative); Protein-Dipstick 30 mg/dl (Negative); Urine Bilirubin Dipstick Negative (Negative); Urine Clarity Clear (Clear); Urine Urobilinogen 4 mg/dl (Normal)
[2022-03-10 00:26] LABS: Ketone-Dipstick 150 mg/dl (Negative)
[2022-03-10 00:39] VITALS: BP 137/100; PULSE 74; RESP 15; O2SAT 100
[2022-03-10] MEDS: Nitrofurantoin Macrocrystals 100 MG Capsule PO (00:45)
== END 2022-03-10 00:54 | disposition home or self-care (01) ==
PROVIDERS: Emergency Provider Emergency Medicine; Visit Provider Emergency Medicine
DX: O23.43 Unspecified infection of urinary tract in pregnancy, third trimester (principal); O21.2 Late vomiting of pregnancy; F17.210 Nicotine dependence, cigarettes, uncomplicated; Z3A.30 30 weeks gestation of pregnancy; O99.333 Smoking (tobacco) complicating pregnancy, third trimester; O99.891 Other specified diseases and conditions complicating pregnancy; R07.9 Chest pain, unspecified
CPT/HCPCS: 80048; 80076; 81002; 85025; 87077; 87086; 87088; 87186; 96361; 96374; 99285; J7030; J2405

== ENCOUNTER 2022-03-13 22:23 | Outpatient (CLI) | payer MEDICAID, SELFPAY ==
[2022-03-13 22:41] VITALS: BMI 44.8
[2022-03-13 22:43] VITALS: BP 146/81; PULSE 85
[2022-03-13 23:07] VITALS: BP 146/78; PULSE 86
[2022-03-13] MEDS: Acetaminophen 500 MG Tablet 1000 MG PO (23:09)
--- NOTE | 2022-03-15 17:17 | PN.OBGYN_ITS ---
Subjective Subjective 31-year-old G2, P0 at 31 weeks presenting with back pain and pelvic pressure. Cervical exam closed thick and high per RN. heart tracing reactive and reassuring. heart rate:135/mod mckenna/+accel/no decel, toco quiet. Patient felt reassured. Reviewed labor precautions. 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 No UTI symptoms at this time. Discharge home. Objective Data Objective Data Vital Signs: Vital Signs Pulse BP 86 146/78 H 03/13/22 23:07 03/13/22 23:07 Weight: 122.243 kg Body Mass Index (BMI) 44.8
== END 2022-03-13 23:30 | disposition home or self-care (01) ==
LOC: WPOUT 22:26 → WP 22:27
PROVIDERS: Visit Provider Student in an Organized Health Care Education/Training Program
DX: O99.891 Other specified diseases and conditions complicating pregnancy (principal); M54.9 Dorsalgia, unspecified; Z3A.31 31 weeks gestation of pregnancy
CPT/HCPCS: 59025; 59050; 99218; G0378

== ENCOUNTER → 2022-04-16 | Outpatient (CLI) | payer MEDICAID, SELFPAY | END | disposition home or self-care (01) | LOC: LABSPEC 09:40 | PROVIDERS: Visit Provider Student in an Organized Health Care Education/Training Program | DX: N39.0 Urinary tract infection, site not specified (principal) | CPT/HCPCS: 87086; 87088 ==

== ENCOUNTER → 2022-04-23 | Outpatient (CLI) | payer MEDICAID, SELFPAY ==
[2022-04-23 13:02] LABS: Absolute Lymphocyte Count 1.34 X10^3/uL (0.83-4.51); Absolute Neutrophil Count 7.8 X10^3/uL (2.0-7.7); Basophil# 0.03 X10^3/uL; Basophil% 0.3 % (0-1); Eosinophil# 0.06 X10^3/uL; Eosinophils% 0.6 % (0-5); Hematocrit 37.9 % (37-47); Hemoglobin 12.7 g/dL (12.0-15.0); Lymphocyte # 1.34 X10^3/ul (0.83-4.51); Lymphocyte % 13.3 % (19-41); Mean Corp Hgb Conc 33.5 g/dL (32-36); Mean Corpuscular Hgb 30.7 pg (27.0-32.0); Mean Corpuscular Volume 91.5 fL (81-99); Mean Platelet Vol. 10.1 fl (6.2-12.0); Monocyte# 0.73 X10^3/uL; Monocyte% 7.3 % (0-10); NRBC Flagged by Analyzer 0 % (0-5); Neutrophil % 77.5 % (47-70); Platelet Count 258 K/mm3 (150-450); RBC Distribution Width SD 46.7 fl (35.1-43.9); Red Blood Count 4.14 M/mm3 (4.2-5.4); White Blood Count 10.1 K/mm3 (4.4-11.0)
[2022-04-23 13:30] LABS: Syphilis Antibodies Non-reactive
== END | disposition home or self-care (01) ==
LOC: WOBLAB 12:06
PROVIDERS: Visit Provider Student in an Organized Health Care Education/Training Program
DX: Z36.85 Encounter for antenatal screening for Streptococcus B (principal)
CPT/HCPCS: 36415; 85025; 86780; 87081

== ENCOUNTER 2022-05-13 09:35 | Inpatient (IN) | payer MEDICAID, SELFPAY ==
[2022-05-13] VITALS (20 sets, daily range): BP systolic 117–142; BP diastolic 48–78; PULSE 46–72; RESP 15–18; TEMP 36.1–36.8; O2SAT 97–100; BMI 46.2
[2022-05-13] MEDS: Lactated Ringers 1,000 ML 999 ML IV (10:30)
[2022-05-13 10:47] LABS: Absolute Lymphocyte Count 1.58 X10^3/uL (0.83-4.51); Absolute Neutrophil Count 8.1 X10^3/uL (2.0-7.7); Basophil# 0.04 X10^3/uL; Basophil% 0.4 % (0-1); Eosinophil# 0.11 X10^3/uL; Hematocrit 39.4 % (37-47); Hemoglobin 13.2 g/dL (12.0-15.0); Lymphocyte # 1.58 X10^3/ul (0.83-4.51); Lymphocyte % 14.6 % (19-41); Mean Corp Hgb Conc 33.5 g/dL (32-36); Mean Corpuscular Hgb 30.9 pg (27.0-32.0); Mean Corpuscular Volume 92.3 fL (81-99); Mean Platelet Vol. 10.2 fl (6.2-12.0); Monocyte% 8.3 % (0-10); NRBC Flagged by Analyzer 0 % (0-5); Neutrophil % 75.1 % (47-70); Platelet Count 235 K/mm3 (150-450); RBC Distribution Width CV 13.9 % (11.6-14.6); RBC Distribution Width SD 46.9 fl (35.1-43.9); Red Blood Count 4.27 M/mm3 (4.2-5.4); White Blood Count 10.8 K/mm3 (4.4-11.0)
--- NOTE | 2022-05-13 11:07 | HP.PCM.OB_ITS ---
History and Physical Date of Admission: 05/13/22 HPI: 31-year-old G2, P1 at 39/6 weeks, NINA 05/14/2022 by LMP, admitted for elective primary section. Denies headache or vision changes, chest pain or shortness of breath, nausea vomiting, diarrhea constipation, fevers or chills. Reports movement. Denies leaking fluid, vaginal bleeding, contractions. complicated by: Superficial vein thrombosis on aspirin, late care, bipolar disorder, obesity. Patient has been living in the [facility] during her . [employer] history G1: Ectopic in 2019 G2: Current Medical history: 1. Obesity 2. Superficial vein thrombosis in 3. Bipolar disorder Surgical history: 1. Right salpingectomy Medications: 1. Aspirin 81 mg 2. Iron 3. Zofran 4. Tylenol 5. Benadryl as needed Allergies: 1. Penicillin, has had Keflex without reaction 2. Sulfa Family history: Noncontributory. No history of blood clots or bleeding disorders Social history: Reports tobacco use. Denies alcohol or drug use Review of system: Negative otherwise stated above Physical exam Blood pressure 123/78, pulse 70 General: No acute distress HEENT: Normal cephalic/atraumatic, PERRLA Cardiorespiratory: No increased effort Abdomen: Soft, nontender, gravid Extremities: +1 pedal edema Neurologic: Cranial nerves II through XII grossly intact, no focal deficits Musculoskeletal: Strength out of 5 throughout extremities heart rate: [place]: Assessment/plan:?31-year-old G2, P1 at 39/6 weeks, NINA 05/14/2022 by LMP, admitted for elective primary section. ?Admit to labor and delivery. ?Ancef preoperatively, patient has received cephalosporins prior without issue ?Desires Nexplanon to be placed
[2022-05-13] MEDS: Acetaminophen 500 MG Tablet 1000 MG PO ×3 (11:23→23:18)
[2022-05-13] MEDS: Lactated Ringers 1,000 ML 150 ML IV (11:37)
[2022-05-13 12:04] LABS: Amphetamine Urine VISTA NEGATIVE (<1000 ng/mL); Barbiturate Urine VISTA NEGATIVE (< 200 ng/mL); Benzodiazepine Urine VISTA NEGATIVE (< 200 ng/mL); Cocaine Urine VISTA NEGATIVE (< 300 ng/mL); Ecstacy Urine VISTA NEGATIVE (< 500 ng/mL); Methadone Urine VISTA NEGATIVE (< 300 ng/mL); PCP Urine VISTA NEGATIVE (< 25 ng/mL); THC Urine VISTA NEGATIVE (< 50 ng/mL); Vista UDS pH Range 5
[2022-05-13] MEDS: Ondansetron 4 MG/2 ML Vial IV (12:05)
[2022-05-13 12:17] LABS: Chlamydia Trachomatis by PCR Negative (Negative); Neisserai gonorrhoeae by PCR Negative (Negative); Probe Check PASS; Sample Adequacy Control PASS; Specimen Processing Control PASS
[2022-05-13] MEDS: Sodium Citrate/Citric Acid 30 ML UDC PO (13:02)
[2022-05-13] MEDS: Clindamycin 900 MG/50 ML BAG 75 MG IV (13:45)
--- NOTE | 2022-05-13 14:40 | EX.PCM.OBRPT ---
Details Operative Information Date of Procedure: 05/13/22 Pre-Operative Diagnosis: Tovar intrauterine Post-Operative Diagnosis: Tovar intrauterine Indications Narrative: 31-year-old at 39/6 weeks, NINA 05/14/2022 by LMP, admitted for elective section. All risk, benefits, alternative discussed with patient. Risk include but are not limited to: Risk of bleeding to the point transfusion, infection, injury to surrounding tissue including bowel/bladder potentially requiring prolonged [place] catheter use, VTE, ICU admission. Patient aware and consented. Classification: Scheduled Procedure Type: low transverse Estimated Blood Loss: 800 cc Fluids Replaced: 1000 cc Findings Description of Procedure: Procedure: Patient taken to the operating room and spinal anesthesia placed. Patient placed in the supine position with left lateral tilt. Prepped and draped in the usual sterile fashion. Pfannenstiel skin incision made with scalpel and carried down through subcutaneous tissue. Fascia nicked on either side of the midline and extended bilaterally using [place]jillo scissors. Brady clamps grasped. Fascial edge which was tented up and underlying rectus muscles were dissected off bluntly sharply at midline using Trujillo scissors. Brady clamps moved to inferior fascial edge which was tented up and underlying rectus muscles were dissected in a similar fashion. Rectus muscles were noted to be superiorly, peritoneum entered bluntly. Bladder blade placed. Low transverse uterine incision made with scalpel and extended bluntly. Hand placed into the uterine cavity. With gentle fundal pressure fetus was moving transverse and vacuum was placed 3 cm anterior to the posterior fontanelle, head delivered and vacuum released followed by body. No pop offs. No nuchal cord. Cord clamped and cut. Baby to nursing. Manual extraction of placenta. Uterus exteriorized and cleared of all clots. Hysterotomy closed with a running stitch followed by second vertical imbricating stitch. Hemostatic with Bovie and 1 [id number] suture. Uterus replaced into the abdominal cavity. Confirmed hemostasis. Peritoneum closed with running stitch. Fascia closed with running stitch. Subcutaneous tissue irrigated and then reapproximated with a running stitch. Subcuticular stitch closed skin. Bandage placed. At the end of the procedure all needle, lap, sponge counts were correct. UOP: 50cc clear urine Infant A Gender: Female (1 minute): 8 (5 minute): 9 Complications Complications: None
[2022-05-13] MEDS: Oxytocin 15 Units/NS 250ml 15 UNITS/250 ML IV.SOLN 83 UNITS IV (14:50)
[2022-05-13] MEDS: Ketorolac 30 MG/ML Syringe IV ×2 (15:19→20:22)
[2022-05-13] MEDS: Lactated Ringers 1,000 ML 100 ML IV (17:52)
--- NOTE | 2022-05-13 23:40 | NURSING ---
pt ambulated to door and back to bed. Tolerated well.
[2022-05-14] VITALS (11 sets, daily range): BP systolic 104–138; BP diastolic 50–60; PULSE 54–77; RESP 15–18; TEMP 36.2–36.8; O2SAT 96–99
[2022-05-14] MEDS: Ketorolac 30 MG/ML Syringe IV ×2 (02:12→09:03)
[2022-05-14] MEDS: 0.9% Saline Lock 10 ML Syringe IV ×2 (02:12→09:03)
[2022-05-14 04:47] LABS: Hematocrit 37.6 % (37-47); Hemoglobin 12.4 g/dL (12.0-15.0); Mean Platelet Vol. 10.3 fl (6.2-12.0); Platelet Count 213 K/mm3 (150-450); RBC Distribution Width CV 13.6 % (11.6-14.6); RBC Distribution Width SD 46.6 fl (35.1-43.9); White Blood Count 16.9 K/mm3 (4.4-11.0)
[2022-05-14] MEDS: Enoxaparin 40 MG/0.4 ML Syringe SC (05:55)
[2022-05-14] MEDS: Acetaminophen 500 MG Tablet 1000 MG PO ×4 (05:55→23:35)
[2022-05-14] MEDS: Etonogestrel 68 MG IMPLANT SC (08:09)
--- NOTE | 2022-05-14 08:21 | PN.OBGYN_ITS ---
Subjective Subjective No overnight complaint Objective Data Objective Data Vital Signs: Vital Signs Temp Pulse Resp BP Pulse Ox O2 Del Method 97.5 F L 54 L 16 116/59 L 96 Room Air 05/14/22 07:41 05/14/22 07:41 05/14/22 07:41 05/14/22 07:41 05/14/22 07:41 05/14/22 07:41 Oxygen Delivery Method Room Air Weight: 278 lb Body Mass Index (BMI) 46.2 Intake & Output: Intake and Output for Last 24 Hours 05/12/22 05/13/22 05/14/22 23:59 23:59 23:59 Intake Total 2047.25 / 2047.25 Output Total 2100 / 2099 425 / 425 Balance -52.75 / -52.75 -425 / -425 Lab / Micro Data Result Diagrams: 05/14/22 04:40 Labs: Laboratory Results - last 24 hr 05/13/22 10:20: Chlam trachomat DNA PCR Negative, N.gonorrhoeae DNA (PCR) Negative 05/13/22 10:35: WBC 10.8, RBC 4.27, Hgb 13.2, Hct 39.4, MCV 92.3, MCH 30.9, MCHC 33.5, RDW Std Deviation 46.9 H, RDW Coeff of Dayo 13.9, Plt Count 235, MPV 10.2, Immature Gran % (Auto) 0.600, Neut % (Auto) 75.1 H, Lymph % (Auto) 14.6 L, [place] % (Auto) 8.3, Eos % (Auto) 1.0, Baso % (Auto) 0.4, Absolute Neuts (auto) 8.1 H, Absolute Lymphs (auto) 1.58, Nucleated RBC % 0 05/13/22 10:35: Blood Type A NEGATIVE, Antibody Screen NEGATIVE 05/13/22 11:40: Urine Opiates Screen NEGATIVE, Urine Methadone Screen NEGATIVE, Ur Barbiturates Screen NEGATIVE, Ur Phencyclidine Scrn NEGATIVE, Ur Amphetamines Screen NEGATIVE, MDMA (Ecstasy) Screen NEGATIVE, U Benzodiazepines Scrn NEGATIVE, Urine Cocaine Screen NEGATIVE, U Cannabinoids Screen NEGATIVE, Ur Drug Screen Comment 05/14/22 04:40: WBC 16.9 H, RBC 4.00 L, Hgb 12.4, Hct 37.6, MCV 94.0, MCH 31.0, MCHC 33.0, RDW Std Deviation 46.6 H, RDW Coeff of Dayo 13.6, Plt Count 213, MPV 10.3 Physical Exam Const alert, oriented x3, no apparent distress, average body habitus, healthy a ppearing and well nourished HEENT normocephalic and moist oral mucous membranes Eyes PERRL Neck full ROM Resp normal respiratory effort, no retractions and no use of accessory muscles GI GI Narrative: Soft, nontender, bandage clean dry and intact Extremity normal to inspection and full ROM Neuro moves all extremities and no focal motor deficits Psych mental status grossly normal, affect normal, speech normal and activity/motor behavior normal Assessment & Plan (1) delivery delivered: PLAN: Postop day 1 status post primary section elective. Breast- feeding. Pain well controlled. Declines depression. Desires Nexplanon educated on risk benefits alternatives of Nexplanon insertion. Patient states understanding wish to proceed. Left arm prepared with Betadine, appropriate measurements were made, 1 cc of 1% lidocaine was injected at operative site, Nexplanon inserted. Good hemostasis was noted. Steri-Strips and pressure dressing applied. Likely discharge home tomorrow
[2022-05-14] MEDS: Senna/Docusate Sodium 1 Tablet PO (10:17)
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
[2022-05-14] MEDS: Ibuprofen 600 MG Tablet PO ×2 (14:39→21:03)
--- NOTE | 2022-05-14 18:00 | CASEMGMT ---
Social Work Labor and Delivery 1530 - Called [facility] and spoke with Micaela in the intake department. Referral given due to multiple risk factors including untreated maternal mental health, questionable maternal learning/literacy (history of IEP), needing encouragement with feedings and limited support though does endorse having support from a worker name Nita 4 times a week. Possible early drug exposure in utero, though drug screens currently negative. Brief maternal and histories provided. Updated to strengths including multiple social service worker reported to be involved, though this writer editor with concern that ZAIRE's mental health does not appear to be treated and even though has identified supports [facility] the [facility], support does appear limited overall. At this time, referral likely to be screened out for investigation. CS aware of likely discharge this weekend. Approximately 1800 - Returned to MOB's room to provide some information on mood and anxiety disorders,shaken baby prevention, safe sleeping, and general resources for [facility]. MOB's grandmother in the room holding baby. Grandmother confirms plan to take MOB and home at discharge. Plan: MOB and to discharge to [facility]. MOB is connected with social service worker agencies. Will monitor for meconium drug screen results. Should additional concerns arise prior to discharge SW remains available to assist as needed. -BILLY Schaefer, PROBATION MANAGER
[2022-05-14] MEDS: oxyCODONE 5 MG Tablet PO (20:01)
[2022-05-15 02:20] VITALS: BP 121/66; PULSE 81; RESP 16; TEMP 36.6
[2022-05-15] MEDS: Ibuprofen 600 MG Tablet PO ×2 (04:01→09:23)
[2022-05-15] MEDS: oxyCODONE 5 MG Tablet PO (04:51)
[2022-05-15] MEDS: Enoxaparin 40 MG/0.4 ML Syringe SC (06:18)
[2022-05-15] MEDS: Acetaminophen 500 MG Tablet 1000 MG PO ×2 (06:18→12:38)
[2022-05-15 07:59] VITALS: BP 129/69; PULSE 69; RESP 16; TEMP 36.7; O2SAT 97
[2022-05-15] MEDS: Senna/Docusate Sodium 1 Tablet PO (09:23)
--- NOTE | 2022-05-15 10:03 | PCM.PN.OB ---
Subjective Subjective No overnight complaints. Pain well controlled. Tolerating regular diet. Ambulating. Voiding spontaneously Objective Data Objective Data Vital Signs: Vital Signs Temp Pulse Resp BP Pulse Ox O2 Del Method 98.0 F 69 16 129/69 H 97 Room Air 05/15/22 07:59 05/15/22 07:59 05/15/22 07:59 05/15/22 07:59 05/15/22 07:59 05/15/22 07:59 Oxygen Delivery Method Room Air Weight: 278 lb Body Mass Index (BMI) 46.2 Intake & Output: Intake and Output for Last 24 Hours 05/13/22 05/14/22 05/15/22 23:59 23:59 23:59 Intake Total 2047.25 / 2047.25 Output Total 2099 / 2099 1325 / 1325 Balance -52.75 / -52.75 -1325 / -1325 Lab / Micro Data Result Diagrams: 05/14/22 04:40 Physical Exam Const alert, oriented x3, no apparent distress, average body habitus, healthy appearing and well nourished HEENT normocephalic and moist oral mucous membranes Eyes PERRL Neck full ROM Resp normal respiratory effort, no retractions and no use of accessory muscles GI GI Narrative: Soft, nontender, bandage clean dry and intact Extremity normal to inspection and full ROM Neuro moves all extremities and no focal motor deficits Psych mental status grossly normal, affect normal, speech normal and activity/motor behavior normal Assessment & Plan (1) delivery delivered: PLAN: Postop day 2 status post elective primary section. Breast-feeding. Pain well controlled. Meeting all postoperative criteria for home. Patient with bipolar disease, stopped Depakote and Seroquel 2 months prior to , routinely followed throughout by psych. Mood appropriate throughout along with postop. We will follow-up with psych. Patient seen by social work. Has housing with [employer] and has long-term housing scheduled. Okay to discharge home today
--- NOTE | 2022-05-15 10:12 | DS.PCM_ITS ---
Discharge Summary Date of Admission: 05/13/22 Date of Discharge: 05/15/22 Summary: Patient arrived on 05/13/2022 for scheduled primary section elective. Subsequently had section on 05/13/2022. Nexplanon placed on 05/14/2022. Patient seen by social work on 05/14/2022 as patient is living at the [facility]. Otherwise routine postoperative recovery. Patient discharged home on 05/15/2022 Meaningful Use Info Meaningful Use Diagnoses (Choose all that apply): None applicable Discharge Plan Admission Admit Date/Time: 05/13/22 09:35 Primary Reason for Your Visit: section Attending Provider: Chichi Swift Primary Care Provider: Care PhysicianVelia Primary Instructions Additional Instructions / Restrictions: Regular diet. Okay to shower. No tub baths for 2 weeks. No intercourse for 4 to 6 weeks. No lifting over 25 pounds for 2 to 3 weeks. Call if fevers, chills, chest pain, shortness of breath. Follow-up 2 weeks postoperatively Discharge Orders/Prescriptions Prescriptions: New oxycodone 5 mg Tablet 5 mg PO Q6H PRN PRN (Reason: Pain Score 7-10) 4 Days Qty: 16 0RF Continued Gummies 400 mcg-35 mg- 25 mg-5 mg Tablet,Chewable 1 tab PO DAILY ondansetron 4 mg tablet,disintegrating 4 mg PO Q8H PRN (Reason: nausea and vomiting) 30 Days Qty: 30 1RF melatonin 10 mg Tablet Extended Release 20 mg PO QHS acetaminophen [Tylenol] 325 mg tablet 650 mg PO QHS diphenhydramine HCl [Benadryl Allergy] 25 mg Tablet 25 mg PO QHS PRN (Reason: Allergies) Discontinued aspirin 81 mg Tablet,Chewable 81 mg PO DAILY ferrous gluconate 325 mg (36 mg iron) Tablet 27 mg PO DAILY Rx Instructions: Takes 3 a day. Referrals / Follow Up: Care Physician,Velia Primary [Primary Care Provider] - Disposition Disposition (needs filled in before D/C Order can be placed): Home, Self Care
[2022-05-15 12:51] VITALS: BP 132/48; PULSE 68; RESP 16; TEMP 36.8; O2SAT 97
--- NOTE | 2022-05-15 15:08 | CM.ED ---
SW Note ARLENE spoke to Oli Gamez RN who reported she had heard no concerns regarding nb and mob. ARLENE spoke to CHANCE Mosley, who stated she had no concerns regarding MOB and NB and the overnight staff voiced no concerns either. Melany conferred with MD Swift this morning and he voiced that he had no concerns regarding patient. Melany said that mob and nb are supposed to get housing next week. No concens voiced to this hand sign writer. Shonna CERVANTES
== END 2022-05-15 14:00 | disposition home or self-care (01) | DRG 540 ==
PROVIDERS: Admitting Provider Student in an Organized Health Care Education/Training Program; Visit Provider Student in an Organized Health Care Education/Training Program
PROC: 10D00Z1 Extraction of Products of Conception, Low, Open Approach (ICD-10-PCS; CPT 59514; principal; 2022-05-13 11:45)
DX: O99.214 Obesity complicating childbirth (principal); F17.210 Nicotine dependence, cigarettes, uncomplicated; F31.9 Bipolar disorder, unspecified; K21.9 Gastro-esophageal reflux disease without esophagitis; M51.26 Other intervertebral disc displacement, lumbar region; O99.344 Other mental disorders complicating childbirth; Z37.0 Single live birth; O99.62 Diseases of the digestive system complicating childbirth; O99.334 Smoking (tobacco) complicating childbirth; Z3A.39 39 weeks gestation of pregnancy; Z59.01 Sheltered homelessness; Z79.899 Other long term (current) drug therapy; Z30.46 Encounter for surveillance of implantable subdermal contraceptive; O99.892 Other specified diseases and conditions complicating childbirth
CPT/HCPCS: 59025; 59050; 80307; 85025; 85027; 86850; 86900; 86901; 87491; 87591; 99221; 99252; J7120; A4216; G0378; G0463; J2405

== ENCOUNTER → 2022-06-08 | Outpatient (CLI) | payer MEDICAID, SELFPAY ==
--- NOTE | 2022-06-08 09:39 | VDLE_ITS ---
Reason For Study: Pain Procedure LEFT This is a venous duplex using B-mode, color GSV is normal. flow and spectral Doppler. CFV is compressible, spontaneous, phasic, Exam performed in department. competent, and demonstrates normal A preliminary report was called and/or faxed augmentation. to Marilee FLETCHER. FV is compressible, spontaneous, phasic, competent and demonstrates normal augmentation. POP V is compressible, spontaneous, phasic, competent and demonstrates normal augmentation. T/P Trunk is compressible. PTV is compressible. LT PerV is compressible. Thrombus filled varicose veins noted in the left distal thigh to proximal calf. VL/Venous Duplex US, Unilateral Interpretation Summary There is no evidence of left lower extremity deep vein thrombosis. Left great s aphenous vein appears patent and compressible segmentally. Superficial thrombophlebitis varicose vein left distal thigh to proximal calf. Ordering Physician: Chichi Swift Performed By: Araceli Morgan RVT
== END | disposition home or self-care (01) ==
LOC: CVS 09:36
PROVIDERS: Referring Provider Student in an Organized Health Care Education/Training Program; Visit Provider Student in an Organized Health Care Education/Training Program
DX: M79.662 Pain in left lower leg (principal); Z48.816 Encounter for surgical aftercare following surgery on the genitourinary system
CPT/HCPCS: 93971

== ENCOUNTER → 2022-07-16 | Outpatient (CLI) | payer MEDICAID, SELFPAY | END | disposition home or self-care (01) | LOC: LABSPEC 10:50 | PROVIDERS: Visit Provider Student in an Organized Health Care Education/Training Program | DX: R30.0 Dysuria (principal) | CPT/HCPCS: 87086 ==

== ENCOUNTER → 2022-12-10 | Outpatient (CLI) | payer MEDICAID, SELFPAY ==
[2022-12-17 13:08] LABS: HPV APTIMA, High Risk Negative (Negative)
== END | disposition home or self-care (01) ==
LOC: LABSPEC 16:20
PROVIDERS: Referring Provider Student in an Organized Health Care Education/Training Program; Visit Provider Student in an Organized Health Care Education/Training Program
DX: Z12.4 Encounter for screening for malignant neoplasm of cervix (principal)
CPT/HCPCS: 87624; 88175; G0145